=== PATIENT | female | born 1960 | race Hispanic/Latino ===

== ENCOUNTER → 2018-04-30 | Day surgery (SDC) | payer OTHER ==
[~2018-04-30] MED LIST: CRESTOR20 MG PO; FENTANYL CITRATE/PF 100MCG/2 ML INJ ONE; FLUOXETINE HCL10 MG PO; GABAPENTIN100 MG PO; IBUPROFEN400 MG PO; LOSARTAN POTASS25 MG PO; METFORMIN HCL500 MG PO; MIDAZOLAM HCL 2 MG/2 ML VIAL ONE; PROPOFOL IV EMULSION 10 MG/ML 50 ML VIAL ONE; VITAMIN D32000 UNIT PEG
--- OUTSIDE RECORDS SUMMARY | 2018-04-30 06:10 | XMS REPORT ---
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 Allergies, Adverse Reactions, Alerts This patient has no known allergies or adverse reactions. Medications This patient has no known medications. Encounters Start Date/Time End Date/Time Encounter Type Admission Type Attending [facility] Facility Care Department Encounter ID 2018-01-21 00:00:00 2018-01-21 00:00:00 Outpatient [facility] [id number] 2017-12-04 00:00:00 2017-12-04 00:00:00 Outpatient [facility] [id number] 2017-11-30 00:00:00 2017-11-30 00:00:00 Outpatient [facility] [id number] 2017-11-15 08:42:43 2017-11-15 08:42:43 Outpatient [facility] [id number] 2017-11-15 08:17:30 2017-11-15 08:17:30 Outpatient [facility] [id number] 2017-11-15 00:00:00 2017-11-15 00:00:00 Outpatient [facility] [id number] 2017-11-15 00:00:00 2017-11-15 00:00:00 Outpatient [facility] [id number] 2017-11-15 00:00:00 2017-11-15 00:00:00 Outpatient [facility] [id number] 2017-11-05 11:16:32 2017-11-05 11:16:32 Outpatient [facility] [id number] 2017-10-18 15:07:05 2017-10-18 15:07:05 Outpatient [facility] [id number] 2017-10-12 12:19:07 2017-10-12 12:19:07 Outpatient [facility] [id number] 2017-10-11 10:17:07 2017-10-11 10:17:07 Outpatient [facility] [id number] 2017-10-11 00:00:00 2017-10-11 00:00:00 Outpatient [facility] [id number] 2017-10-11 00:00:00 2017-10-11 00:00:00 Outpatient [facility] [id number] 2017-10-11 00:00:00 2017-10-11 00:00:00 Outpatient [facility] [id number] 2017-10-11 00:00:00 2017-10-11 00:00:00 Outpatient [facility] [id number] 2017-10-10 09:44:20 2017-10-10 09:44:20 Outpatient [facility] [id number] 2017-10-10 08:36:01 2017-10-10 08:36:01 Outpatient [facility] [id number] 2017-10-10 08:34:30 2017-10-10 08:34:30 Outpatient [facility] [id number] 2017-10-10 07:53:46 2017-10-10 07:53:46 Outpatient [facility] [id number] 2017-10-10 00:00:00 2017-10-10 00:00:00 Outpatient [facility] [id number] 2017-10-10 00:00:00 2017-10-10 00:00:00 Outpatient [facility] [id number] 2017-08-13 11:15:20 2017-08-13 11:15:20 Outpatient [facility] [id number] 2017-07-30 13:01:13 2017-07-30 13:01:13 Outpatient [facility] [id number] 2017-07-19 08:34:39 2017-07-19 08:34:39 Outpatient [facility] [id number] 2017-06-21 10:31:04 2017-06-21 10:31:04 Outpatient [facility] [id number] 2017-06-15 15:19:42 2017-06-15 15:19:42 Outpatient [facility] [id number] 2017-05-21 11:36:12 2017-05-21 11:36:12 Outpatient [facility] [id number] 2017-04-25 09:14:37 2017-04-25 09:14:37 Outpatient [facility] [id number] 2017-04-25 08:33:07 2017-04-25 08:33:07 Outpatient [facility] [id number] 2017-04-18 09:03:19 2017-04-18 09:03:19 Outpatient [facility] [id number] 2017-03-21 07:49:53 2017-03-21 07:49:53 Outpatient [facility] [id number] 2017-03-19 10:21:11 2017-03-19 10:21:11 Outpatient [facility] [id number] 2017-02-19 13:02:13 2017-02-19 13:02:13 Outpatient [facility] [id number] 2017-01-24 08:31:49 2017-01-24 08:31:49 Outpatient [facility] [id number] 2017-01-22 09:59:06 2017-01-22 09:59:06 Outpatient [facility] [id number] 2017-01-12 09:12:28 2017-01-12 09:12:28 Outpatient [facility] [id number] 2016-12-29 09:14:40 2016-12-29 09:14:40 Outpatient [facility] [id number] 2016-12-25 13:19:23 2016-12-25 13:19:23 Outpatient [facility] [id number] 2016-12-11 09:54:04 2016-12-11 09:54:04 Outpatient [facility] [id number] 2016-12-11 09:02:16 2016-12-11 09:02:16 Outpatient [facility] [id number] 2016-12-11 00:00:00 2016-12-11 00:00:00 Outpatient [facility] [id number] 2016-12-01 13:38:17 2016-12-01 13:38:17 Outpatient [facility] [id number] 2016-11-30 15:27:42 2016-11-30 15:27:42 Outpatient [facility] [id number] 2016-11-30 00:00:00 2016-11-30 00:00:00 Outpatient [facility] [id number] 2016-11-30 00:00:00 2016-11-30 00:00:00 Outpatient [facility] [id number] 2016-11-27 15:59:26 2016-11-27 15:59:26 Outpatient [facility] [id number] 2015-10-04 05:38:00 2015-10-04 09:26:00 Out[place] [facility] [facility] [id number]
[2018-04-30 10:30] VITALS: BP 123/77
== END | disposition home or self-care (01) ==
LOC: OR 06:08
PROVIDERS: ATTEND Internal Medicine Gastroenterology
DX: K29.70 Gastritis, unspecified, without bleeding (principal); K44.9 Diaphragmatic hernia without obstruction or gangrene; K59.00 Constipation, unspecified; I10 Essential (primary) hypertension; E11.9 Type 2 diabetes mellitus without complications; E78.5 Hyperlipidemia, unspecified; R07.9 Chest pain, unspecified; Z01.810 Encounter for preprocedural cardiovascular examination; Z79.84 Long term (current) use of oral hypoglycemic drugs; Z68.39 Body mass index [BMI] 39.0-39.9, adult
CPT/HCPCS: 36415; 43239; 82948; 93005; J2250

== ENCOUNTER → 2018-05-07 | Day surgery (SDC) | payer OTHER ==
[~2018-05-07] MED LIST changes: -FENTANYL CITRATE/PF 100MCG/2 ML INJ ONE
[2018-05-07 11:15] VITALS: BP 115/82
== END | disposition home or self-care (01) ==
LOC: OR 07:10
PROVIDERS: ATTEND Internal Medicine Gastroenterology
DX: Z12.11 Encounter for screening for malignant neoplasm of colon (principal); E11.9 Type 2 diabetes mellitus without complications; I10 Essential (primary) hypertension; K76.0 Fatty (change of) liver, not elsewhere classified; Z79.84 Long term (current) use of oral hypoglycemic drugs; D12.0 Benign neoplasm of cecum; D12.3 Benign neoplasm of transverse colon; K57.90 Diverticulosis of intestine, part unspecified, without perforation or abscess without bleeding; K64.8 Other hemorrhoids
CPT/HCPCS: 36415; 45384; 82948; J2250